=== PATIENT | female | born 1980 | race Caucasian/White ===

== ENCOUNTER 2024-08-21 12:57 | Emergency (ER) | payer SELFPAY ==
[~2024-08-21] VITALS: Ht 162.6 cm; Wt 65.8 kg
[2024-08-21 14:02] LABS: BASOPHILS % (AUTO) 0.3 % (0.0-2.0); EOSINOPHILS # (AUTO) 0.1 K/uL (0.0-0.7); EOSINOPHILS % (AUTO) 1.1 % (0.0-6.0); HEMATOCRIT 45 % (33-45); HEMOGLOBIN 14.9 g/dL (11.5-14.8); LYMPHOCYTES # (AUTO) 3.8 K/uL (0.8-4.8); LYMPHOCYTES % (AUTO) 37.3 % (20.0-44.0); MEAN CORPUSCULAR HEMOGLOBIN 34 PG (26.0-33.0); MEAN CORPUSCULAR HGB CONC 34 g/dl (31.0-36.0); MEAN CORPUSCULAR VOLUME 101 fL (82-100); MONOCYTES # (AUTO) 0.5 K/uL (0.1-1.30); MONOCYTES % (AUTO) 4.7 % (2.0-12.0); NEUTROPHILS # (AUTO) 5.8 K/uL (1.8-8.9); NEUTROPHILS % (AUTO) 56.6 % (43.0-81.0); PLATELET COUNT (AUTO) 282 K/uL (150-450); RED CELL DISTRIBUTION WIDTH 12.2 % (11.5-15.0); WHITE BLOOD COUNT (AUTO) 10.2 K/uL (4.3-11.0)
[2024-08-21 14:04] VITALS: BP 121/84; TEMP 98.2; O2SAT 98
[2024-08-21 14:18] LABS: CALCIUM, SERUM 8.1 mg/dL (8.5-10.1); CREATININE 0.7 mg/dL (0.6-1.3); POTASSIUM 3.6 mmol/L (3.5-5.1)
[2024-08-21] MEDS ORDERED: BENZ-13 PO (15:06)
[2024-08-21] MEDS ORDERED: AMOX-430 PO (15:06)
== END 2024-08-21 15:13 | disposition home or self-care (01) ==
LOC: ER 13:02
DX: J32.8 Other chronic sinusitis (principal); F17.200 Nicotine dependence, unspecified, uncomplicated
CPT/HCPCS: 36415; 71045-TC; 80048-TC; 85025-TC